=== PATIENT | male | born 1990 | race Caucasian/White ===

== ENCOUNTER 2017-11-25 16:00 | Emergency (ER) | payer BC ==
[~2017-11-25] VITALS: Ht 182.9 cm; Wt 75.0 kg
[~2017-11-25 16:00] MED LIST: ABIL15TA2 PO; HYDR-3129 PO; REME15TA PO
[2017-11-25 16:49] VITALS: BP 127/73; PULSE 64; RESP 18; TEMP 98.4; O2SAT 100
--- NOTE | 2017-11-28 11:33 | PD ---
Physical Exam Date Seen by Provider: Nov 25, 2017 Time Seen by Provider: 23:00 Narrative 27-year-old male presents to the emergency department for evaluation of diarrhea for 10 days. He also reports that he did have vomiting, but the vomiting has resolved. He also reports generalized abdominal pain. He denies any recent antibiotic use. Current pain is 4/10. Moderate severity. Data Data Last Documented VS Vital Signs Date Time Temp Pulse Resp B/P (MAP) Pulse Ox O2 Delivery O2 Flow Rate FiO2 11/25/17 16:49 98.4 64 18 127/73 (91) 100 MDM Supervised Visit with MARCO ANTONIO: No Narrative Course 27-year-old male presents to the emergency department for evaluation of diarrhea and abdominal pain. Patient initially seen in triage. He left AGAINST MEDICAL ADVICE before he could be moved to medical bed. Diagnosis Primary Impression: Left against medical advice Patient Instructions: General Instructions Departure Forms: Tests/Procedures Disposition: [address] Nov 28, 2017 11:33
== END 2017-11-26 01:05 | disposition left against medical advice (07) ==
LOC: NED 16:00
DX: R19.7 Diarrhea, unspecified (principal); R10.84 Generalized abdominal pain
CPT/HCPCS: 99281